=== PATIENT | male | born 1970 | race Caucasian/White ===

== ENCOUNTER → 2020-09-24 10:39 | Outpatient (CLI) | payer OTHER, SELFPAY ==
--- NOTE | 2020-09-24 10:42 | DI.RAD.S_ITS ---
PROCEDURE: FL BARIUM SWALLOW INDICATIONS: Gastro-esophageal reflux disease without esophagit COMPARISON: None. FINDINGS: Function: There is normal esophageal peristalsis. No elicited or spontaneous gastroesophageal reflux. There is normal transit of a calibrated barium tablet through the esophagus into the stomach. Morphology: Air-contrast images demonstrate normal mucosal morphology. Single contrast views show no esophageal strictures, extrinsic mass effects, or diverticula. Limited images of the stomach demonstrate normal appearance. IMPRESSION: Negative examination. No specific evidence of esophagitis. Dictated by: Poncho David M.D. on 09/24/2020 at 12:42 Approved by: Poncho David M.D. on 09/24/2020 at 12:43
== END ==
PROVIDERS: PCP Family Medicine; Referring Provider Otolaryngology; Visit Provider Otolaryngology
DX: K21.9 Gastro-esophageal reflux disease without esophagitis (principal)
CPT/HCPCS: 74220

== ENCOUNTER → 2024-11-08 10:34 | Outpatient (CLI) | payer OTHER, SELFPAY ==
[2024-11-08 19:22] LABS: Add Manual Diff / Slide Review NO; Basophils Absolute Auto 0 /uL (0-100); Basophils Percent Auto 0.4 % (0-2); Eosinophils Absolute Auto 100 /uL (0-450); Eosinophils Percent Auto 1.1 % (2-4); Hematocrit 39.6 % (41-53); Hemoglobin 13.6 g/dL (13.5-17.5); Lymphocytes Absolute Auto 1000 /uL (1100-4500); Lymphocytes Percent Auto 18.9 % (25-40); Mean Corpuscular HGB Conc 34.4 % (30-36); Mean Corpuscular Hemoglobin 31.1 PG (26-34); Mean Corpuscular Volume 90.3 fL (80-100); Monocytes Absolute Auto 600 /uL (0-900); Monocytes Percent Auto 11.1 % (3-14); Neutrophils Absolute Auto 3700 /uL (1500-7000); Neutrophils Percent Auto 68.5 % (50-75); Platelet Count 211 X10^3/uL (150-400); Red Blood Cell Count 4.38 X10^6/uL (4.5-5.9); Red Cell Distribution Width 12.6 % (11.6-14.8); White Blood Cell Count 5.4 X10^3/uL (4.5-11.0)
[2024-11-08 19:29] LABS: Alanine Aminotransferase 23 IU/L (<50); Albumin 4.7 g/dL (3.5-5.0); Albumin Globulin Ratio 1.7 (1.0-2.8); Alkaline Phosphatase 55 U/L (38-126); Aspartate Aminotransferase 86 IU/L (17-59); BUN Creatinine Ratio 12.9 (6-22); Bilirubin Total 0.5 mg/dL (0.2-1.3); Blood Urea Nitrogen 13 mg/dL (9-20); C-Reactive Protein Quant < 0.5 mg/dL (<1.0); Calcium 9.6 mg/dL (8.4-10.2); Carbon Dioxide 25 mmol/L (22-32); Chloride 102 mmol/L (98-107); Cholesterol 154 mg/dL (140-199); Estimated Glomerular Filt Rate > 60 mL/min (>60); Globulin 2.7 g/dL (1.7-4.1); Glucose 92 mg/dL (70-100); HDL Cholesterol 52 mg/dL (40-60); HEMOLYSIS 26 (0-50); LDL Cholesterol Calculated 91 mg/dL (<100); Potassium 3.7 mmol/L (3.4-5.1); Sodium 138 mmol/L (137-145); Total Protein 7.4 g/dL (6.3-8.2); Triglycerides 54 mg/dL (35-150)
[2024-11-08 19:30] LABS: Rheumatoid Factor < 8.6 IU/mL (<12.0)
[2024-11-08 19:58] LABS: Prostate Specific Antigen Scrn 0.733 ng/mL (0.1-4.0)
[2024-11-08 20:27] LABS: Erythrocyte Sedimentation Rate 8 MM/HR (0-15)
[2024-11-12 11:13] LABS: Fecal Immunochemical Test Negative (Negative)
[2024-11-12 13:09] LABS: ANA Screen, IFA Negative (.)
== END ==
PROVIDERS: PCP Physician Assistant; Visit Provider Physician Assistant
DX: Z12.5 Encounter for screening for malignant neoplasm of prostate (principal); M25.50 Pain in unspecified joint; Z13.6 Encounter for screening for cardiovascular disorders; M25.40 Effusion, unspecified joint; Z12.11 Encounter for screening for malignant neoplasm of colon; R06.00 Dyspnea, unspecified
CPT/HCPCS: 80053; 80061; 82274; 84443; 85025; 85651; 86038; 86140; 86430; G0103

== ENCOUNTER → 2024-11-19 13:08 | Outpatient (CLI) | payer OTHER, SELFPAY ==
[2024-11-19 18:55] LABS: HEMOLYSIS 16 (0-50); Iron 90 ug/dL (49-181)
[2024-11-19 18:58] LABS: Erythrocyte Sedimentation Rate 5 MM/HR (0-15)
[2024-11-19 18:59] LABS: Alanine Aminotransferase 20 IU/L (<50); Albumin 4.6 g/dL (3.5-5.0); Albumin Globulin Ratio 1.8 (1.0-2.8); Alkaline Phosphatase 50 U/L (38-126); Aspartate Aminotransferase 32 IU/L (17-59); BUN Creatinine Ratio 18.5 (6-22); Bilirubin Total 0.2 mg/dL (0.2-1.3); Blood Urea Nitrogen 17 mg/dL (9-20); Calcium 9.2 mg/dL (8.4-10.2); Carbon Dioxide 26 mmol/L (22-32); Chloride 106 mmol/L (98-107); Estimated Glomerular Filt Rate > 60 mL/min (>60); Globulin 2.6 g/dL (1.7-4.1); Glucose 96 mg/dL (70-100); HEMOLYSIS < 15 (0-50); Potassium 4.1 mmol/L (3.4-5.1); Sodium 140 mmol/L (137-145); Total Protein 7.2 g/dL (6.3-8.2)
[2024-11-19 19:10] LABS: Percent Iron Saturation 24 % (20-50); Total Iron Binding Capacity 377 ug/dL (261-462); Transferrin 314 mg/dL (206-381)
[2024-11-19 19:30] LABS: Ferritin 68 ng/mL (18-464)
[2024-11-19 19:43] LABS: Vitamin B12 347 pg/mL (239-931)
[2024-11-20 16:34] LABS: Hep C Virus Ab w/Reflex Quant NEGATIVE s/c (NEGATIVE)
== END ==
PROVIDERS: PCP Physician Assistant; Referring Provider Physician Assistant; Visit Provider Physician Assistant
DX: D64.9 Anemia, unspecified (principal); M25.50 Pain in unspecified joint; R74.8 Abnormal levels of other serum enzymes
CPT/HCPCS: 80053; 82607; 82728; 83540; 83550; 85651; 86803

== ENCOUNTER → 2025-02-28 13:06 | Outpatient (CLI) | payer OTHER, SELFPAY ==
[2025-02-28 19:46] LABS: Add Manual Diff / Slide Review NO; Hematocrit 39.6 % (41-53); Hemoglobin 13.4 g/dL (13.5-17.5); Lymphocytes Absolute Auto 1100 /uL (1100-4500); Mean Corpuscular HGB Conc 33.9 % (30-36); Mean Corpuscular Hemoglobin 31.6 PG (26-34); Mean Corpuscular Volume 93.2 fL (80-100); Platelet Count 175 X10^3/uL (150-400)
[2025-02-28 19:53] LABS: Hemoglobin A1C% w Est Avg Glu 5.6 % (4.0-6.0)
[2025-02-28 20:06] LABS: HEMOLYSIS 15 (0-50); Iron 86 ug/dL (49-181)
[2025-02-28 20:20] LABS: Percent Iron Saturation 23 % (20-50); Total Iron Binding Capacity 380 ug/dL (261-462); Transferrin 312 mg/dL (206-381)
[2025-02-28 20:40] LABS: Ferritin 58 ng/mL (18-464)
[2025-02-28 20:49] LABS: HIV 1 & 2 Ab/Ag 4th Gen Combo NEGATIVE (NEGATIVE)
[2025-02-28 21:15] LABS: Folate 6.8 ng/mL (2.76-20.0); Vitamin B12 446 pg/mL (239-931)
== END ==
PROVIDERS: PCP Physician Assistant; Visit Provider Physician Assistant
DX: D64.9 Anemia, unspecified (principal); Z11.4 Encounter for screening for human immunodeficiency virus [HIV]; G62.9 Polyneuropathy, unspecified; M25.50 Pain in unspecified joint
CPT/HCPCS: 82607; 82728; 82746; 83036; 83540; 83550; 85025; 85651; 87389